=== PATIENT | female | born 1945 ===

== ENCOUNTER 2016-12-22 06:01 | Day surgery (SDC) | payer MEDICARE, OTHER ==
[2016-12-21 13:17] VITALS: BMI 28.8
[2016-12-22] MEDS ORDERED: Lactated Ringer's 1,000 ML IV ONE (06:44)
--- NOTE | 2016-12-22 07:29 | CP.SDSHP ---
Same Day Surgery H & P - History Proposed Procedure: hysteroscopy/D/C possible polypectomy Pre-Op Diagnosis: post menopausal bleeding and thickened endometrium by sono - Previous Medical/Surgical History Cardiac: Hypertension Previous Surgical History: hx of prior D/C for same problem in 2014 but had benign results - Allergies Allergies: Allergies No Known Allergies Allergy (Verified 04/13/15 08:18) - Physical Exam General Appearance: NAD, well nourished Vital Signs: Vital Signs 12/22/16 12/22/16 06:26 06:28 Temperature 98.8 F Pulse Rate 55 L 55 L Respiratory 18 Rate Blood Pressure 169/97 H O2 Sat by Pulse 99 Oximetry Mental Status: Alert & Oriented x3 Heart: WNL Lungs: WNL GI: WNL - {Optional Preform as Required} Breast: WNL Abdomen: WNL Integument: WNL [employer]: WNL - Impression Impression: postmenopausal bleeeding and sono showing endometrial lining to be thikened 1.1 cm - Date & Time Date: 12/22/16 Time: 07:32 Short Stay Discharge - Short Stay Discharge Admitting Diagnosis/Reason for Visit: N95.0 Disposition: HOME/ ROUTINE Referrals: Armando Shah MD [Primary Care Provider] -
[2016-12-22] MEDS ORDERED: Midazolam 2 MG/2 ML VIAL ONE (07:30)
[2016-12-22] MEDS ORDERED: Propofol 10 mg/ml Inj (20 ML) ONE (07:30)
[2016-12-22] MEDS ORDERED: Lidocaine 2% MPF (5 ml) Inj ONE (07:31)
[2016-12-22] MEDS ORDERED: Oxycodone/Acetaminophen 5/325 mg Tab PO PRN (08:26)
[2016-12-22] MEDS ORDERED: HYDROmorphone 0.5 mg/0.5 ml ISec IVP PRN (08:32)
[2016-12-22 09:43] VITALS: RESP 18; O2SAT 98
[2016-12-22 10:52] VITALS: BP 133/66; PULSE 50; TEMP 97.9
--- NOTE | 2016-12-23 02:53 | OP ---
PROCEDURE DATE: 12/22/2016 PREOPERATIVE DIAGNOSES: 1. Postmenopausal bleeding. 2. Thickening endometrium by ultrasound. POSTOPERATIVE DIAGNOSES: 1. Postmenopausal bleeding. 2. Endometrial polyp. PROCEDURES PERFORMED: 1. Hysteroscopy with endometrial polypectomy using MyoSure procedure. 2. Fractional dilatation and curettage. SURGEON: Nahun Mcdonough MD TYPE OF ANESTHESIA: General. ANESTHESIA ADMINISTERED BY: Dr. Marques. ESTIMATED BLOOD LOSS: 75 mL. DRAINS USED: None. REPLACEMENT USED: None. FINDINGS: 1. Cervix appears closed posterior, no gross lesion to visualization. 2. Uterus appears anteverted and mobile, sounded to 3-1/4 inches and appears to move to palpation. 3. No adnexal masses to palpation bilaterally. 4. Hysteroscopy revealed large endometrial polyp. 5. Polypectomy performed using MyoSure procedure without any complications. 6. Fractional dilatation and curettage performed without any complications. DESCRIPTION OF PROCEDURE: The patient was taken to the operating room and placed on the operating table in supine position. Following induction of general anesthesia, the patient was then replaced in the dorsal lithotomy position. Perineal and genital areas were draped and prepped in the usual sterile manner. At this time, we then proceeded to place a sterile catheter into the bladder and clear fluid was then evacuated from the bladder. The patient was then examined under anesthesia with some of the above findings. Heavy weighted speculum was then placed in the posterior wall of vagina to exposing the cervix. The anterior lip of the cervix was then grasped using a single tooth tenaculum and retracted superiorly. At this time, the endocervical canal was then curetted using a Sotero curette. Minimal amount of tissue obtained and sent to pathology for proper pathological evaluation. At this time, the endocervical canal was then dilated using Elver dilators in an increasing size manner. A hysteroscope was then placed into the cervical os and under direct visualization, it was advanced into the endometrial cavity. At this time, an endometrial polyp was then noted to be present and using a MyoSure procedure, polypectomy was then performed and the polyp was removed in toto and specimen sent to pathology. At this time, no bleeding noted, no other lesion noted in the endometrial cavity and the hysteroscope was then removed under direct visualization. The endometrial cavity was then gently curetted using sharp curettage. Tissue obtained and sent to pathology for proper pathological evaluation. Single-tooth tenaculum was then removed. No bleeding noted from the tenaculum site. No active bleeding from the cervix. The patient tolerated the procedure well. No operative complications. She was transferred to the recovery room in satisfactory condition. Nahun Mcdonough MD
== END 2016-12-22 11:49 | disposition home or self-care (01) ==
LOC: H.OPSURG 06:01 → EDBD 06:01 → H.OPSURG 11:49
PROVIDERS: ATTEND Specialist
DX: N95.0 Postmenopausal bleeding (principal); R93.8 Abnormal findings on diagnostic imaging of other specified body structures; I10 Essential (primary) hypertension; N84.0 Polyp of corpus uteri
CPT/HCPCS: 58558; 88305; J0694; J2250; J2704; J3010; J7030; J7120